=== PATIENT | female | born 1950 | race Caucasian/White ===

== ENCOUNTER 2022-04-22 12:33 | Outpatient (CLI) | payer MEDICARE | END 2022-04-22 12:34 | disposition home or self-care (01) | LOC: CSHMAMMO 12:33 | PROVIDERS: ATTEND Internal Medicine | DX: Z12.31 Encounter for screening mammogram for malignant neoplasm of breast (principal); Z13.820 Encounter for screening for osteoporosis; M81.0 Age-related osteoporosis without current pathological fracture; M85.852 Other specified disorders of bone density and structure, left thigh; Z78.0 Asymptomatic menopausal state; Z90.11 Acquired absence of right breast and nipple; Z85.3 Personal history of malignant neoplasm of breast | CPT/HCPCS: 77063; 77067; 77080 ==

== ENCOUNTER 2023-06-29 10:48 | Outpatient (CLI) | payer MEDICARE | END 2023-06-29 10:49 | disposition home or self-care (01) | LOC: CSHMAMMO 10:48 | PROVIDERS: ATTEND Internal Medicine | DX: Z12.31 Encounter for screening mammogram for malignant neoplasm of breast (principal); Z90.11 Acquired absence of right breast and nipple | CPT/HCPCS: 77063; 77067 ==